=== PATIENT | male | born 1985 | race Caucasian/White ===

== ENCOUNTER 2017-04-14 14:56 | Emergency (ER) | payer OTHER ==
[~2017-04-14] VITALS: Ht 175.3 cm; Wt 65.0 kg
[2017-04-14 14:58] VITALS: BP 114/81; PULSE 75; RESP 20; O2SAT 99
--- NOTE | 2017-04-14 16:20 | ED.REPORT ---
HPI-General Illness Date of Service Apr 14, 2017 ED Provider: Hardeep Vegas MD Patient is a 31 year old male with a hx of seizures on Depakote who presents to the ED complaining of yellowing of his eyes onset this morning. He denies fevers , chills, abdominal pain, nausea, vomiting, or any other symptoms. He was seen at yesterday for dark, cloudy urine but his workup was normal. He denies alcohol use. He quit smoking tobacco and THC one week ago. Nursing Notes Stated Complaint: YELLOWING EYES Chief Complaint: General Complaint Nursing Notes Reviewed: Yes Allergies: Coded Allergies: No Known Allergies (Unverified , 04/14/17) General Time Seen by MD: 16:19 Chief Complaint Other (Yellowing eyes ) Hx Obtained From: Patient Arrived By: Walk-in Sudden in Onset?: Yes Onset Occurred: 9 - 12 hours ago Symptom Duration: Since onset Severity: Current: No pain currently Severity: Maximum: No pain Recent Healthcare: Recent doctor visit Similar Sx Previous: No Past Medical History Past Medical History Seizures Past Surgical History None reported Smoking History Former Smoker Social History Alcohol Use: Denies alcohol use Drug Use: THC Ambulatory Status Independent Review of Systems +yellowing of eyes Full Review of Systems Constitutional: Denies: Chills, Fever GI: Denies: Abdominal pain, Nausea, Vomiting Complete sys rev & neg: except as marked. Physical Exam Vital Signs Vital Signs Date Time Temp Pulse Resp B/P Pulse Ox O2 Delivery O2 Flow Rate FiO2 04/14/17 18:14 36.9 76 20 127/75 100 Room Air 04/14/17 17:11 36.2 75 20 124/70 98 Room Air 04/14/17 14:58 36.5 75 20 114/81 99 Room Air Initial VS: Reviewed, Vital signs normal Neck: Supple, Full range of motion Respiratory: Breath sounds normal, Clear to auscultation, No respiratory distress Cardiovascular: Regular rate & rhythm, Heart sounds normal, Intact distal pulses Abdomen / GI: Soft, Non-tender Skin: Warm, Dry Neurologic: Alert, Oriented, Nonfocal Psychiatric: Mood/affect normal, Behavior normal, Normal thought content General/Constitutional: Awake, Alert, No acute distress Head / Eyes: Atraumatic, Normocephalic, PERRL, EOMI, No scleral icterus No jaundice Sclera normal Interpretation & Diagnostics CMP and CBC unremarkable Lab Results Interpretation Result Diagram: 04/14/17 1708 04/14/17 1708 Test 04/14/17 16:57 04/14/17 17:08 Hold Urine Received (Received) White Blood Count 7.0th/mm3 (3.8-10.1) Red Blood Count 5.08mil/mm3 (4.40-5.80) Hemoglobin 15.9g/dL (13.8-17.2) Hematocrit 43.9% (41.0-50.0) Mean Corpuscular Volume 86.4fL (81-100) Mean Corpuscular Hemoglobin 31.3pg (27.0-35.0) Mean Corpuscular Hemoglobin Concent 36.2% (32.0-37.0) Red Cell Distribution Width 11.8% (12.3-15.4) Platelet Count 240bil/L (150-400) Neutrophils (%) (Auto) 69.3% (40-74) Lymphocytes (%) (Auto) 24.4% (14-46) Monocytes (%) (Auto) 5.4% (4-12) Eosinophils (%) (Auto) 0.4% (0-5) Basophils (%) (Auto) 0.4% (0-3) Sodium Level 140mEq/L (134-144) Potassium Level 4.0mEq/L (3.5-5.2) Chloride Level 100mEq/L (97-108) Carbon Dioxide Level 25mmol/L (18-29) Blood Urea Nitrogen 13mg/dL (6-20) Creatinine 0.75mg/dL (0.76-1.27) Estimat Glomerular Filtration Rate 130mL/min (>59) Glucose Level 189mg/dL (60-99) Calcium Level 9.5mg/dL (8.5-10.1) Total Bilirubin 0.6mg/dL (0.0-1.2) Aspartate Amino Transf (AST/SGOT) 18U/L (0-50) Alanine Aminotransferase (ALT/SGPT) 23U/L (0-44) Alkaline Phosphatase 50U/L (25-150) Total Protein 7.3g/dL (6.4-8.4) Albumin 4.7g/dL (3.4-5.0) Lipase 30U/L (13-60) Re-Eval/Medical Decision Med Decision/Clinical Course Patient is a 31 year old male with a hx of seizures on Depakote who presents to the ED complaining of yellowing of his eyes onset this morning. He denies fevers , chills, abdominal pain, nausea, vomiting, or any other symptoms. He was seen at yesterday for dark, cloudy urine but his workup was normal. He denies alcohol use. He quit smoking tobacco and THC one week ago. Upon arrival to the emergency Department the patient seems extremely anxious and reports that he has a high level of anxiety. Examination is completely normal and I see no evidence whatsoever of scleral icterus or jaundice. Laboratory studies including CBC and CMP were unremarkable. Notably LFTs were within normal limits and total bilirubin was within normal limits. The patient denies any history of ingestion of hepatotoxic medications including alcohol and acetaminophen. Patient reports that he feels reassured after this workup and would like to go home. Again, I see no evidence whatsoever of the patient's perceived yellowing of his eyes and I feel that discharge and follow up with his primary care physician is reasonable. Prior to discharge follow-up and return precautions were reviewed in detail with the patient who verbalized understanding and agreement with the plan. The patient was discharged in stable condition. Time of Eval: 17:59 Re-Evaluation/Progress Note: Discussed plan for discharge. Patient understands and agrees with plan. All questions addressed at this time. Counseled Regarding: Diagnosis, Lab results, Need for follow-up, When/why to return to ED Discharge & Departure Primary Impression: Anxiety Additional Impression: Jaundice of recent onset Disposition: Home Discharge Condition All VS Reviewed: Yes Condition: Stable Additional Instructions: Thank you for seeking care at the emergency room. Our primary goal today in the ED was to evaluate you for any life-threatening conditions. Your evaluation and labs are reassuring. We did not find any evidence of liver problems, jaundice, or any other dangerous cause for your symptoms. You should follow-up with your primary doctor in the next week for re- evaluation. Take your medications as prescribed. You should return to the ED immediately if you develop fevers, vomiting, cough, shortness of breath, chest pain, lightheadedness, weakness or any other concerning signs or symptoms. Thank you for letting us partake in your care today. Referrals: Elias Wray MD (PCP) Scribe Attestation Portions of this note were transcribed by Woody Gasca. I, Dr. Vegas personally performed the history, physical exam and medical decision-making; I reviewed and confirmed the accuracy of the information in the transcribed note. Signed: Moreno Lobo, 04/14/17 copies to: Elias Wray MD, Beck O MD Apr 14, 2017 16:19 WOODY GASCA Apr 14, 2017 16:27
[2017-04-14 17:11] VITALS: BP 124/70; PULSE 75; RESP 20; O2SAT 98
[2017-04-14 17:45] LABS: BASOPHILS % (AUTO) 0.4 % (0-3); EOSINOPHILS % (AUTO) 0.4 % (0-5); MONOCYTES % (AUTO) 5.4 % (4-12); Mean Corpuscular Hemoglobin 31.3 pg (27.0-35.0); Mean Corpuscular Volume 86.4 fL (81-100); NEUTROPHILS % (AUTO) 69.3 % (40-74); Platelet Count 240 bil/L (150-400)
[2017-04-14 18:14] VITALS: BP 127/75; PULSE 76; RESP 20; O2SAT 100
== END 2017-04-14 18:15 | disposition home or self-care (01) ==
LOC: SED 14:56
DX: F41.9 Anxiety disorder, unspecified (principal); Z87.891 Personal history of nicotine dependence; Z86.69 Personal history of other diseases of the nervous system and sense organs

== ENCOUNTER 2017-04-25 11:31 | Emergency (ER) | payer OTHER ==
[~2017-04-25] VITALS: Ht 175.3 cm; Wt 61.4 kg
[2017-04-25 11:41] VITALS: BP 90/50; PULSE 103; RESP 16; O2SAT 96
--- NOTE | 2017-04-25 13:09 | ED.REPORT ---
HPI-General Illness Date of Service Apr 25, 2017 ED Provider: Doc,Ed MD History of Present Illness: not feeling well. having blurred vision, comes and goes with his anxiety, chills, anxiety D[facility] at [facility] is primary care. saw him 04/01, appt on 05/02 to follow up no medication. no hx of shizophrenia. not working. ate today. denies hearing voices Nursing Notes Stated Complaint: POSS INFECTION Chief Complaint: General Complaint Nursing Notes Reviewed: Yes Allergies: Coded Allergies: No Known Allergies (Unverified , 04/25/17) General Time Seen by MD: 13:08 Chief Complaint Multip medical complaints Hx Obtained From: Patient Sudden in Onset?: No Past Medical History Past Medical History Notes: no mental health care Past Medical History Seizures takes depakote 250 mg TID but has been taking only once or 2 times a day. feels the depakote was making him irritable Past Surgical History None reported Smoking History Former Smoker Social History Alcohol Use: Denies alcohol use Drug Use: THC Occupation lives with girlfriend and 11 month baby no work or school 04/25/2017 Ambulatory Status Independent Physical Exam Vital Signs Vital Signs Date Time Temp Pulse Resp B/P Pulse Ox O2 Delivery O2 Flow Rate FiO2 04/25/17 14:53 36.7 76 20 132/70 98 Room Air 04/25/17 14:28 36.7 76 20 132/70 98 Room Air 04/25/17 11:41 37.2 103 16 90/50 96 Room Air Initial VS: Reviewed, Vital signs normal General/Constitutional: Well-developed, Well-nourished Head / Eyes: Atraumatic, Normocephalic, PERRL ENT: Mucous membranes moist, Conjunctiva normal, No scleral icterus Neck: Supple, Non-tender, Full range of motion Respiratory: Breath sounds normal, Clear to auscultation, No respiratory distress Cardiovascular: Regular rate & rhythm, Heart sounds normal, Intact distal pulses Abdomen / GI: Soft, Non-tender, No guarding, No rebound, No distention Back: No CVA tenderness Lymphatic: No lymphadenopathy Extremities: Vascular intact, Neuro intact, No swelling, No tenderness Skin: Warm, Dry, No cyanosis Neurologic: Alert, Oriented, Nonfocal Psychiatric: Mood/affect normal, Behavior normal, Normal thought content General/Constitutional: Awake, Alert, No acute distress, Well appearing, Well developed, Well hydrated, Well nourished, Cooperative Head / Eyes: Atraumatic, Normocephalic, PERRL, EOMI, No nystagmus visual acuity normal ENT: Atraumatic, Airway patent, Mucous membranes moist Respiratory / Chest: Atraumatic, Breath sounds NL, Breath sounds = bilat, No respiratory distress Cardiovascular: Heart rate NL, Regular rhythm, Heart sounds NL, No gallop Interpretation & Diagnostics Lab Results Interpretation Result Diagram: 04/25/17 1330 04/25/17 1330 Test 04/25/17 13:30 White Blood Count 5.7th/mm3 (3.8-10.1) Red Blood Count 5.03mil/mm3 (4.40-5.80) Hemoglobin 15.6g/dL (13.8-17.2) Hematocrit 43.4% (41.0-50.0) Mean Corpuscular Volume 86.3fL (81-100) Mean Corpuscular Hemoglobin 31.0pg (27.0-35.0) Mean Corpuscular Hemoglobin Concent 35.9% (32.0-37.0) Red Cell Distribution Width 11.8% (12.3-15.4) Platelet Count 267bil/L (150-400) Neutrophils (%) (Auto) 65.8% (40-74) Lymphocytes (%) (Auto) 25.1% (14-46) Monocytes (%) (Auto) 8.5% (4-12) Eosinophils (%) (Auto) 0.2% (0-5) Basophils (%) (Auto) 0.2% (0-3) Sodium Level 140mEq/L (134-144) Potassium Level 4.5mEq/L (3.5-5.2) Chloride Level 101mEq/L (97-108) Carbon Dioxide Level 24mmol/L (18-29) Blood Urea Nitrogen 9mg/dL (6-20) Creatinine 0.69mg/dL (0.76-1.27) Estimat Glomerular Filtration Rate 143mL/min (>59) Glucose Level 106mg/dL (60-99) Calcium Level 9.4mg/dL (8.5-10.1) Total Bilirubin 0.3mg/dL (0.0-1.2) Aspartate Amino Transf (AST/SGOT) 18U/L (0-50) Alanine Aminotransferase (ALT/SGPT) 22U/L (0-44) Alkaline Phosphatase 45U/L (25-150) Total Protein 7.6g/dL (6.4-8.4) Albumin 4.8g/dL (3.4-5.0) Thyroid Stimulating Hormone (TSH) 1.180uIU/mL (0.450-4.500) Hold Gonzalez Top Tube Received (Received) Re-Eval/Medical Decision Med Decision/Clinical Course Discussed with CASSANDRA ARCHITECT. Have arranged a walk in appointment tomorrow between 8:30 and 10:30 at [facility]. Discusses with primary care, has followup appointment 05/02 and neurology appointment 05/11. Patient with evidence of parnoia( feels he has a bad disease) and does not work because of fear of having a seizure. Patient is not having thoughts of self harm or harming others. Encouraged connection with mental health. No sign of conversion disorder. Discharge & Departure Primary Impression: Anxiety Disposition: Home Patient Instructions: Anxiety (ED) Additional Instructions: Your labs are normal. You can walk in tomorrow at [facility] tomorrow between 8:30 and 10:30. Please continue to follow with them. Keep the appointment with primary care and with Dr. Cárdenas as scheduled. Start a trial of visteral to see if that does help with your anxiety. The medication may make you sleepy. Please take in the evening. At this time, no sign of infection. Please get your flu vaccine when available. Referrals: Elias Wray MD (PCP) EDSupervising Provider for APC: Addison Romero DO copies to: Elias Wray MD, Sue ARNP Apr 25, 2017 13:09
[2017-04-25 13:50] LABS: BASOPHILS % (AUTO) 0.2 % (0-3); EOSINOPHILS % (AUTO) 0.2 % (0-5); MONOCYTES % (AUTO) 8.5 % (4-12); Mean Corpuscular Volume 86.3 fL (81-100); NEUTROPHILS % (AUTO) 65.8 % (40-74); Platelet Count 267 bil/L (150-400)
[2017-04-25 14:28] VITALS: BP 132/70; PULSE 76; RESP 20; O2SAT 98
[2017-04-25 14:53] VITALS: BP 132/70; PULSE 76; RESP 20; O2SAT 98
== END 2017-04-25 14:54 | disposition home or self-care (01) ==
LOC: SED 11:31
DX: F41.9 Anxiety disorder, unspecified (principal); Z87.891 Personal history of nicotine dependence